=== PATIENT | male | born 1965 | race Caucasian/White ===

== ENCOUNTER 2018-02-10 17:43 | Emergency (ER) | payer MEDICARE, OTHER, MEDICAID ==
[~2018-02-10] VITALS: Ht 185.4 cm; Wt 97.5 kg
[~2018-02-10 17:43] MED LIST: AMIO200T57 PO; DABI150C PO; FURO-150 PO; HYDR-3972 PO; METO-539 PO; MULT-1085 PO; OMEG1CAP13 PO; POTA8TAB3 PO; ROSU10TA PO; SACU1TAB7 PO
[2018-02-10 18:46] VITALS: BP 89/59
== END 2018-02-10 19:12 | disposition home or self-care (01) ==
LOC: ER 17:43
DX: S09.90XA Unspecified injury of head, initial encounter (principal); S49.90XA Unspecified injury of shoulder and upper arm, unspecified arm, initial encounter; E78.00 Pure hypercholesterolemia, unspecified; I10 Essential (primary) hypertension; G89.29 Other chronic pain; Z79.899 Other long term (current) drug therapy; Z79.01 Long term (current) use of anticoagulants; W11.XXXA Fall on and from ladder, initial encounter; Y93.89 Activity, other specified; Y92.89 Other specified places as the place of occurrence of the external cause; Y99.8 Other external cause status
CPT/HCPCS: 70450; 72125; 99284

== ENCOUNTER 2020-02-25 10:05 | Emergency (ER) | payer MEDICARE, OTHER, MEDICAID ==
[~2020-02-25] VITALS: Ht 185.4 cm; Wt 106.8 kg
[~2020-02-25 10:05] MED LIST changes: -AMIO200T57 PO; +AMIO200T62 PO; -ROSU10TA PO; +ROSU10TA2 PO
[2020-02-25] MEDS ORDERED: aspirin 325mg tablet PO ONE (10:25)
[2020-02-25 10:40] LABS: BASOPHILS % (AUTO) 0.4 % (0-1); EOSINOPHILS # (AUTO) 0.2 X10'3 (0-0.9); EOSINOPHILS % (AUTO) 2.8 % (0-6); HEMATOCRIT 40.8 % (42.0-52.0); HEMOGLOBIN 13.8 g/dl (14.0-17.9); LYMPHOCYTES # (AUTO) 1.2 X10'3 (1.1-4.8); LYMPHOCYTES % (AUTO) 19.8 % (21-51); MEAN CORPUSCULAR HEMOGLOBIN 33.2 PG (27.0-31.0); MEAN CORPUSCULAR HGB CONC 33.9 g/dL (33.0-36.5); MEAN CORPUSCULAR VOLUME 97.7 FL (78-98); MEAN PLATELET VOLUME 8.7 FL (7.4-10.4); MONOCYTES # (AUTO) 0.4 X10'3 (0-0.9); MONOCYTES % (AUTO) 6.3 % (2-12); NEUTROPHILS # (AUTO) 4.4 X10'3 (1.8-7.7); NEUTROPHILS % (AUTO) 70.7 % (42-75); PLATELET COUNT 180 X10'3 (140-440); RED BLOOD COUNT 4.17 X10'6 (4.70-6.10); RED CELL DISTRIBUTION WIDTH 13.1 % (11.5-14.5); WHITE BLOOD COUNT 6.3 X10'3 (4.5-11.0)
[2020-02-25 10:50] LABS: D-DIMER 0.28 MG/L FEU (0-0.50)
[2020-02-25 10:53] LABS: ALANINE AMINOTRANSFERASE 39 U/L (12-78); ALBUMIN 3.8 G/DL (3.4-5.0); ALKALINE PHOSPHATASE 56 IU/L (46-116); ANION GAP 7 (8-16); ASPARTATE AMINO TRANSFERASE 24 U/L (10-37); BILIRUBIN,TOTAL 0.6 MG/DL (0.1-1.0); BLOOD UREA NITROGEN 23 MG/DL (7-18); BUN/CREATININE RATIO 21.3 (5.4-32.0); CALCIUM 9.4 MG/DL (8.5-10.1); CHLORIDE 107 MMOL/L (99-107); CREATININE 1.08 MG/DL (0.60-1.10); GLUCOSE 109 MG/DL (70-104); POTASSIUM 4.7 MMOL/L (3.5-5.1); SODIUM 140 MMOL/L (135-145); TOTAL CARBON DIOXIDE 25.6 MMOL/L (24-32); TOTAL PROTEIN 7.5 G/DL (6.4-8.2); eGFR 72 ML/MIN
[2020-02-25 13:22] VITALS: BP 110/78
== END 2020-02-25 13:25 | disposition home or self-care (01) ==
LOC: ER 10:06
DX: R07.89 Other chest pain (principal); M79.604 Pain in right leg; M79.89 Other specified soft tissue disorders; E78.00 Pure hypercholesterolemia, unspecified; I10 Essential (primary) hypertension; G89.29 Other chronic pain; Z72.89 Other problems related to lifestyle; Z79.899 Other long term (current) drug therapy
CPT/HCPCS: 36415; 71045; 80053; 84484; 85025; 85379; 93005; 93971; 99285

== ENCOUNTER 2024-03-28 09:57 | Day surgery (SDC) | payer MEDICARE, OTHER, MEDICAID ==
[2024-03-24 10:48] LABS: BASOPHILS % (AUTO) 0.3 % (0-1); EOSINOPHILS # (AUTO) 0.2 X10'3 (0-0.9); EOSINOPHILS % (AUTO) 3.7 % (0-6); HEMATOCRIT 48.3 % (42.0-52.0); HEMOGLOBIN 15.9 g/dl (14.0-17.9); LYMPHOCYTES # (AUTO) 1.1 X10'3 (1.1-4.8); LYMPHOCYTES % (AUTO) 16.2 % (21-51); MEAN CORPUSCULAR HEMOGLOBIN 32.4 PG (27.0-31.0); MEAN CORPUSCULAR VOLUME 98.1 FL (78-98); MEAN PLATELET VOLUME 8.9 FL (7.4-10.4); MONOCYTES # (AUTO) 0.5 X10'3 (0-0.9); NEUTROPHILS # (AUTO) 4.8 X10'3 (1.8-7.7); NEUTROPHILS % (AUTO) 71.8 % (42-75); PLATELET COUNT 203 X10'3 (140-440); RED BLOOD COUNT 4.92 X10'6 (4.70-6.10); RED CELL DISTRIBUTION WIDTH 13.7 % (11.5-14.5); WHITE BLOOD COUNT 6.6 X10'3 (4.5-11.0)
[2024-03-24 10:54] LABS: ALBUMIN 4.1 G/DL (3.4-5.0); ANION GAP 12 (8-16); BLOOD UREA NITROGEN 31 MG/DL (7-18); BUN/CREATININE RATIO 23.7 (10.0-20.0); CALCIUM 9.4 MG/DL (8.5-10.1); CHLORIDE 100 MMOL/L (99-107); CREATININE 1.31 MG/DL (0.60-1.10); GLUCOSE 98 MG/DL (70-104); POTASSIUM 5.4 MMOL/L (3.5-5.1); SODIUM 135 MMOL/L (135-145); TOTAL CARBON DIOXIDE 23.3 MMOL/L (24-32); eGFR 56 ML/MIN
[2024-03-24 10:57] LABS: APTT 46 SECONDS (22-32); INR 1.2 INR; PROTHROMBIN TIME 12.7 SECONDS (9.0-12.0)
[2024-03-28] VITALS (12 sets, daily range): BP systolic 114–140; BP diastolic 66–83; PULSE 68–92; RESP 16; TEMP 97.9; O2SAT 95–100
[~2024-03-28] VITALS: Ht 182.9 cm; Wt 110.0 kg
[~2024-03-28 09:57] MED LIST changes: -AMIO200T62 PO; +AMIO200T72 PO; +OMEG-45 PO; -OMEG1CAP13 PO; -POTA8TAB3 PO; +POTA8TAB69 PO
[2024-03-28 10:43] LABS: CHOL/HDL RATIO 2.7 (0.00-4.99); CHOLESTEROL 174 MG/DL (0-200); HDL CHOLESTEROL 64 MG/DL (35-60); LDL CHOLESTEROL 90 MG/DL (50-100); TRIGLYCERIDES 148 MG/DL (20-135)
[2024-03-28] MEDS ORDERED: METO100T7 PO (11:01)
[2024-03-28] MEDS ORDERED: EMPA10TA PO (11:01)
[2024-03-28] MEDS ORDERED: SPIR25TA5 PO (11:01)
[2024-03-28] MEDS: MIDAZolam 1mg/ml 10ml vial IV ONE (13:38)
[2024-03-28] MEDS: fentaNYL/PF 50MCG/1 ML 2ML syringe IV ONE (13:38)
[2024-03-28] MEDS: normal saline 1000ml 1,000 ML IV SCH (13:39)
== END 2024-03-28 14:40 | disposition home or self-care (01) ==
LOC: SSTAY O 09:57
PROVIDERS: ATTEND Student in an Organized Health Care Education/Training Program
DX: I48.0 Paroxysmal atrial fibrillation (principal); I11.0 Hypertensive heart disease with heart failure; I50.9 Heart failure, unspecified; E78.00 Pure hypercholesterolemia, unspecified; G47.33 Obstructive sleep apnea (adult) (pediatric); I42.0 Dilated cardiomyopathy; Z79.891 Long term (current) use of opiate analgesic; Z79.899 Other long term (current) drug therapy; Z95.810 Presence of automatic (implantable) cardiac defibrillator
CPT/HCPCS: 36415; 80048; 80061; 85025; 85610; 85730; 92960; J2250; J3010; J7030

== ENCOUNTER 2025-06-04 13:40 | Outpatient (CLI) | payer MEDICARE, OTHER, MEDICAID ==
[~2025-06-04 13:40] MED LIST changes: +EMPA10TA PO; -FURO-150 PO; -METO-539 PO; +METO100T7 PO; -POTA8TAB69 PO; +SPIR25TA5 PO
--- NOTE | 2025-06-04 19:44 | RADIOLOGY REPORT ---
EXAM: CT CT LUMBAR SPINE HISTORY: LOW BACK PAIN COMPARISON: None CTDIvol 34.79 mGy, DLP 86.59 mGy*cm. TECHNIQUE: Multiple axial CT images of the spine were obtained using bone algorithm. Axial and coronal reformatting was done. Bone and soft tissue windows were reviewed. FINDINGS: Alignment in the lumbar spine is maintained. Vertebral body heights are preserved. No fractures. Disc spaces are fairly well maintained with a few small endplate osteophytes throughout the lumbar spine. Severe facet degenerative changes at L4-5 and L5-S1. Relatively mild disc bulging throughout the mid and lower lumbar spine without high-grade spinal stenosis or significant foraminal stenosis. IMPRESSION: Severe facet degenerative changes in the lower lumbar spine. Relatively mild degenerative disc disease. No large focal disc herniation or obvious nerve root impingement within the limits of CT.
== END 2025-06-04 23:59 | disposition home or self-care (01) ==
LOC: RAD 13:40
PROVIDERS: ATTEND Nurse Practitioner
DX: M51.16 Intervertebral disc disorders with radiculopathy, lumbar region (principal); M47.817 Spondylosis without myelopathy or radiculopathy, lumbosacral region; M54.50 Low back pain, unspecified
CPT/HCPCS: 72131